=== PATIENT | female | born 1960 | race Caucasian/White ===

== ENCOUNTER → 2020-07-23 | Outpatient (CLI) | payer BC ==
--- NOTE | 2020-07-24 08:02 | XR ---
EXAMINATION TYPE: XR KUB DATE OF EXAM: 07/23/2020 Comparison: None Clinical History: 59-year-old female with nausea and kidney stones, N20.0 Findings: Mild stool burden. Nonobstructive bowel gas pattern. Multiple bilateral renal calculi, approximately 5 on the right ranging in size from 3 mm to 1 cm and 2 on the left measuring 1.4 cm and 0.8 cm. Impression: Bilateral nephrolithiasis measuring up to 1.4 cm on the left and 1 cm on the right.
== END | disposition home or self-care (01) ==
LOC: RADXRMAIN 14:22
PROVIDERS: ATTEND Urology
DX: N20.0 Calculus of kidney (principal)
CPT/HCPCS: 74018